=== PATIENT | female | born 1995 | race Caucasian/White ===

== ENCOUNTER 2018-12-19 12:32 | Inpatient (IN) | payer BC ==
[~2018-12-19] VITALS: Ht 160 cm; Wt 64.9 kg
[2018-12-19] VITALS (10 sets, daily range): BP systolic 110–177; BP diastolic 68–118
[2018-12-19 13:36] LABS: Basophils # (auto) 0.1 uL; Basophils % (auto) 0.9 % (0.0-2.0); Eosinophils # (auto) 0.2 uL; Eosinophils % (auto) 2.2 % (0.0-7.0); Hemoglobin 12.8 g/dL (12.2-16.2); Lymphocytes # (auto) 1.6 uL; Lymphocytes % (auto) 17.3 % (10.0-50.0); Mean Corpuscular Hemoglobin 27.2 pg (28.0-32.0); Mean Corpuscular Hgb Conc. 33.7 g/dL (32.0-36.0); Mean Corpuscular Volume 80.6 fL (80.0-100.0); Monocytes # (auto) 0.6 uL; Monocytes % (auto) 6.7 % (0.0-12.0); Neutrophils # (auto) 6.8 uL; Neutrophils % (auto) 72.9 % (37.0-80.0); Nucleated Red Blood Cells % 0.1 %; Platelet Count (auto) 163 10^3/uL (140-450); Red Blood Cells 4.71 10^6/uL (4.0-5.20); Red Cell Distribution Width 13.9 % (11.8-14.3); White Blood Cell 9.3 10^3/uL (4.4-10.8)
[2018-12-19 13:51] LABS: INR < 0.93 (0.9-1.15); Partial Thromboplastin Time 24.7 sec (23.64-32.05)
[2018-12-19 14:00] LABS: Albumin 2.4 g/dL (3.4-5.0); Calcium 8.5 mg/dL (8.5-10.1); Uric Acid 6.2 mg/dL (2.6-6.0)
[2018-12-19 14:03] LABS: BUN/Creatinine Ratio 15.8; Bilirubin, Total 0.2 mg/dL (0.2-1.0); Total Protein 6.2 g/dL (6.4-8.2)
[2018-12-19 14:11] LABS: Urine Bacteria NONE SEEN /hpf (None Seen); Urine Blood Negative /uL (Negative); Urine WBC 3 /hpf (0 - 5)
[2018-12-19 14:56] LABS: Alcohol, Urine < 3.0 mg/dL (0-5); Amphetamine Screen, Urine NEGATIVE (NEGATIVE); Barbiturate Scree,Urine NEGATIVE (NEGATIVE); Benzodiazephine Screen, Urine NEGATIVE (NEGATIVE); Cannabinoid Screen, Urine NEGATIVE (NEGATIVE); Cocaine Screen, Urine NEGATIVE (NEGATIVE); Opiate Scree,Urine NEGATIVE (NEGATIVE); Phencyclidine Screen, Urine NEGATIVE (NEGATIVE)
[2018-12-19] MEDS ORDERED: LABETALOL HCL 200 MG TAB PO ONE (15:30)
[2018-12-19] MEDS ORDERED: LABETALOL HCL 200 MG TAB ONE (15:35)
[2018-12-19] MEDS ORDERED: TETRACAINE 1% INJ 2 ML VIAL IJ ONE (16:01)
[2018-12-19] MEDS ORDERED: fentaNYL CITRATE 100 MCG/2 ML VL ONE (16:01)
[2018-12-19] MEDS ORDERED: MORPHINE SULF(PF) 0.5MG/ML 10ML VIAL ONE (16:01)
[2018-12-19] MEDS ORDERED: SODIUM CHLORIDE LOCK 10 ML ONE (16:02)
[2018-12-19] MEDS ORDERED: ceFAZolin 1GM VL ONE (16:02)
[2018-12-19] MEDS ORDERED: OXYTOCIN 10 UNIT/ML 10ML VIAL ONE (16:02)
[2018-12-19] MEDS ORDERED: ONDANSETRON HCL 4 MG/2 ML VIAL ONE (16:02)
[2018-12-19] MEDS ORDERED: MIDAZOLAM HCL 1MG/1ML-2 ML VIAL ONE (16:02)
[2018-12-19] MEDS ORDERED: EPINEPHrine HCL 1 MG/1 ML AMP ONE (16:03)
[2018-12-19] MEDS ORDERED: BUPIVACAINE/DEXTROSE MPF 0.75% 2 ML AMP IT ONE (16:05)
[2018-12-19] MEDS ORDERED: LACTATED RINGER'S 1,000 ML IV SCH (17:26)
[2018-12-19] MEDS ORDERED: METOCLOPRAMIDE HCL 5MG/ml INJ 2ml VIAL IV PRN (17:30)
[2018-12-19] MEDS ORDERED: HYDROmorphone HCL 2 MG/ML VL IV PRN ×2 (17:30)
[2018-12-19] MEDS ORDERED: ceFAZolin 1GM/50ML 50 ML IV SCH (17:30)
[2018-12-19] MEDS ORDERED: fentaNYL CITRATE 100 MCG/2 ML VL IV PRN (17:30)
[2018-12-19] MEDS ORDERED: MORPHINE SULFATE 4 MG/ML SYR/VIAL IV PRN (17:30)
[2018-12-19] MEDS ORDERED: NALOXONE HCL 0.4 MG/ML VIAL IV PRN (17:30)
[2018-12-19] MEDS ORDERED: ONDANSETRON HCL 4 MG/2 ML VIAL IV PRN (17:30)
[2018-12-19] MEDS ORDERED: diphenhdrAMINE HCL 50 MG/1 ML VL IV PRN (17:30)
--- NOTE | 2018-12-19 18:20 | NUR ---
Post Op for LDRP: Received patient from [facility] SOCIAL SERVICES ANALYST via bed to room . Patient A/A/Ox4, abdominal binder and bilateral SCD's are in place. Fundus firm at umbilicus. IV fluids placed on pump and infusing per order, incisional site dressing clean/dry/intact and Elmore Catheter to gravity draining clear yellow urine. Incentive Spirometer at bedside and instruction on proper use with return demonstration done by patient.
--- NOTE | 2018-12-19 19:00 | NUR ---
CALL PLACED TO DR GREENWOOD REGARDING PT BLOOD PRESSURES. VS REVIEWED WITH . ORDERS RECEIVED FOR LABETALOL 200MG BID, HYDRALIZNE IVP 10MG FOR BP PARAMETERS OF 160/110, AND MAGNESIUM FOR SEIZURE PRECAUTION.
[2018-12-19] MEDS ORDERED: SODIUM CHLORIDE 0.9% 1,000 ML IV SCH (19:12)
[2018-12-19] MEDS ORDERED: MAGNESIUM SULFATE 40MG/ML 1,000 ML IV SCH (19:12)
[2018-12-19] MEDS ORDERED: hydrALAZINE HCL 20 MG/ML VL IV PRN (19:15)
[2018-12-19] MEDS ORDERED: MAGNESIUM SULFATE 100 ML IV ONE (19:15)
[2018-12-19] MEDS ORDERED: hydrALAZINE HCL 20 MG/ML VL ONE (19:41)
--- NOTE | 2018-12-19 21:55 | NUR ---
IV insertion IV access obtained, via clean sterile technique by inserting 20 gauge catheter at L hand. IV secured properly. No trauma to site. Patient tolerated well. IV SL.
[2018-12-19] MEDS ORDERED: ACETAMINOPHEN IV 1000 MG/100ML (10MG/ML) IV ONE (22:00)
[2018-12-19] MEDS: ceFAZolin 1GM/50ML 50 ML IV SCH (23:51)
[2018-12-20] VITALS (12 sets, daily range): BP systolic 112–139; BP diastolic 57–89
--- NOTE | 2018-12-20 01:04 | NUR ---
CALL RECEIVED FROM LAB, CRITICAL MAG LEVEL OF 7.5 NOTED. CALL PLACED TO DUSTY MUNOZ, RESULTS GIVEN OF BLOOD MAG LEVEL, ASSESSMENT ON PT ASYMPTOMATIC. ORDERS RECEIVED TO DECREASE MAG SULFATE TO 1GM/HR. WILL CONTINUE TO MONITOR.
[2018-12-20] MEDS ORDERED: MAGNESIUM SULFATE 40MG/ML 1,000 ML IV SCH (01:30)
[2018-12-20 06:06] LABS: RPR Non Reactive (Non Reactive)
[2018-12-20 06:36] LABS: Basophils # (auto) 0.1 uL; Basophils % (auto) 0.5 % (0.0-2.0); Eosinophils # (auto) 0.2 uL; Eosinophils % (auto) 1.7 % (0.0-7.0); Hematocrit 33.3 % (36.0-46.0); Hemoglobin 11.4 g/dL (12.2-16.2); Lymphocytes # (auto) 1.6 uL; Lymphocytes % (auto) 14.8 % (10.0-50.0); Mean Corpuscular Hemoglobin 27.2 pg (28.0-32.0); Mean Corpuscular Hgb Conc. 34.1 g/dL (32.0-36.0); Mean Corpuscular Volume 79.7 fL (80.0-100.0); Monocytes # (auto) 0.7 uL; Monocytes % (auto) 6.4 % (0.0-12.0); Neutrophils # (auto) 8.2 uL; Neutrophils % (auto) 76.6 % (37.0-80.0); Platelet Count (auto) 144 10^3/uL (140-450); Red Blood Cells 4.18 10^6/uL (4.0-5.20); Red Cell Distribution Width 13.9 % (11.8-14.3); White Blood Cell 10.7 10^3/uL (4.4-10.8)
--- NOTE | 2018-12-20 06:49 | NUR ---
SERVICE LINE LAYER AT BEDSIDE.
--- NOTE | 2018-12-20 08:35 | NUR ---
CALLED DR. SAINI WITH UPDATE ON PATIENT. READ VITALS AND LAB VALUES. NEW ORDERS RECEIVED STOP MAGNESIUM 1 GRAM AND ASSESS BLOOD PRESSURES FOR A FEW HOURS AND CALL WITH BACK WITH RESULTS. IF BLOOD PRESSURE IS HIGH CALL BACK REINALDO. PER DR. SAINI ALSO PUT IN 1ST DAY POST OP ORDERS AND GET PATIENT UP IN 2 HOURS AFTER MAG IS D/C. ORDERS CARRIED OUT.
--- NOTE | 2018-12-20 08:40 | NUR ---
TALKED TO PATIENT ON POC.
[2018-12-20] MEDS ORDERED: BISACODYL 10 MG RECT SUPP PR PRN (08:45)
[2018-12-20] MEDS ORDERED: HYDROcodone-ACET 5/325MG TAB PO PRN (08:45)
[2018-12-20] MEDS ORDERED: PREN-96 PO (09:08)
[2018-12-20] MEDS: ceFAZolin 1GM/50ML 50 ML IV SCH ×2 (09:13→16:35)
[2018-12-20] MEDS: DOCUSATE CALCIUM 240 MG CAP PO SCH ×2 (09:14→10:13)
[2018-12-20] MEDS: DOCUSATE SOD 100 MG CAP PO SCH ×2 (09:14→21:47)
[2018-12-20] MEDS: HYDROcodone-ACET 5/325MG TAB PO PRN ×2 (10:14→16:33)
--- NOTE | 2018-12-20 10:15 | NUR ---
Lynn catheter dc'd Order to discontinue lynn catheter. Lynn dc'd with clean technique following deflation of balloon. Patient tolerated well with no complaints of pain. Continue care.
--- NOTE | 2018-12-20 10:30 | NUR ---
Ambulation: Patient OOB with standby assistance by RN. Patient ambulated to bathroom with steady gait. Patient able to void without difficulty. Pericare teaching provided with returned demonstration by patient. Clean gown provided and bed linen changed. Patient ambulated back to bed with steady gait and no distress noted.
[2018-12-20] MEDS ORDERED: hydrALAZINE HCL 20 MG/ML VL IV ONE (12:30)
[2018-12-20] MEDS: LABETALOL HCL 200 MG TAB PO SCH ×2 (12:42→21:48)
[2018-12-20] MEDS: SIMETHICONE 80 MG CHEWABLE TABLET PO SCH ×3 (12:52→22:00)
[2018-12-20] MEDS: IBUPROFEN 800 MG TAB PO PRN ×2 (12:54→21:09)
[2018-12-21 03:00] VITALS: BP 130/88
[2018-12-21] MEDS: HYDROcodone-ACET 5/325MG TAB PO PRN ×4 (03:12→22:04)
--- NOTE | 2018-12-21 03:19 | NUR ---
Pain assessment: Patient called c/o pain at her incision area. Pain scale 7/10. Bellerose 5/325 mg 2 tab Po given . Addendum: 12/22/18 at 0433 by Itzel Gomez RN Date and Time : 12/22/18 at 0319 Pain assessment: Patient called c/o pain at her incision area. Pain scale 7/10. Bellerose 5/325 mg 2 tab Po given .
[2018-12-21] MEDS: SIMETHICONE 80 MG CHEWABLE TABLET PO SCH ×4 (05:34→22:03)
[2018-12-21] MEDS: IBUPROFEN 800 MG TAB PO PRN ×2 (05:35→14:10)
[2018-12-21 07:00] VITALS: BP 139/99
--- NOTE | 2018-12-21 07:00 | NUR ---
Lower abdominal incision clean, dry and well approximated with abhijit present and intact. Addendum: 12/21/18 at 1157 by Sveta Duran RN Amended: Links added.
[2018-12-21] MEDS: DOCUSATE CALCIUM 240 MG CAP PO SCH (10:07)
[2018-12-21] MEDS: DOCUSATE SOD 100 MG CAP PO SCH ×2 (10:07→22:03)
[2018-12-21] MEDS: LABETALOL HCL 200 MG TAB PO SCH ×2 (10:08→22:06)
[2018-12-21 11:00] VITALS: BP 145/96
[2018-12-21 15:16] VITALS: BP 144/87
--- NOTE | 2018-12-21 15:28 | NUR ---
assessment Per consult surrogate delivery. Per Vinay GRAY received surrogate paperwork after delivery. Per Vinay baby has already been given to maternal mother. Social service was not paged or involved with transfer of baby to mother. Surrogate transfer of baby handled by LDRP. BABY BOY @ 1317 : 11[birth year] BABY ID: [id number]. Addendum: 12/21/18 at 1531 by Karon Espitia Amended: Links added.
[2018-12-21 19:00] VITALS: BP 155/93
[2018-12-21] MEDS ORDERED: NIFEdipine ER 30 MG TAB PO ONE (20:15)
[2018-12-21 20:58] LABS: Eosinophils # (auto) 0.3 uL; Hemoglobin 11.7 g/dL (12.2-16.2); Neutrophils # (auto) 6.3 uL; Nucleated Red Blood Cells % 0.1 %
[2018-12-21 20:59] LABS: Basophils # (auto) 0 uL; Basophils % (auto) 0.5 % (0.0-2.0); Eosinophils % (auto) 3.2 % (0.0-7.0); Hematocrit 35.2 % (36.0-46.0); Lymphocytes # (auto) 2.1 uL; Lymphocytes % (auto) 21.3 % (10.0-50.0); Mean Corpuscular Hemoglobin 27.3 pg (28.0-32.0); Mean Corpuscular Hgb Conc. 33.4 g/dL (32.0-36.0); Mean Corpuscular Volume 81.9 fL (80.0-100.0); Platelet Count (auto) 197 10^3/uL (140-450); Red Cell Distribution Width 14.2 % (11.8-14.3); White Blood Cell 9.7 10^3/uL (4.4-10.8)
[2018-12-21 21:14] LABS: Albumin 2.2 g/dL (3.4-5.0); Calcium 8.4 mg/dL (8.5-10.1); Potassium 4.2 mmol/L (3.5-5.1); Uric Acid 6.4 mg/dL (2.6-6.0)
[2018-12-21 21:16] LABS: INR < 0.93 (0.9-1.15); Partial Thromboplastin Time 26.6 sec (23.64-32.05)
[2018-12-21 21:17] LABS: BUN/Creatinine Ratio 16.7; Bilirubin, Total 0.2 mg/dL (0.2-1.0)
--- NOTE | 2018-12-21 22:00 | NUR ---
Called/paged Dr. Barroso called re: patient's BP 150/101,Hr 88. Patient having blurry vision and headache.Spoke with Dr Barroso with new orders received. PIH panel, Procardia XL 30 mg PO daily. Continue care.
--- NOTE | 2018-12-21 22:05 | NUR ---
Suppository: Dulcolax supp administered AL as requested.
[2018-12-21 23:00] VITALS: BP 112/75
--- NOTE | 2018-12-21 23:00 | NUR ---
Ambulation: Patient OOB and ambulated to bathroom with steady gait. Patient able to have BM . Patient ambulated back to bed with steady gait and no distress noted.
[2018-12-22 03:00] VITALS: BP 110/71
[2018-12-22] MEDS: HYDROcodone-ACET 5/325MG TAB PO PRN ×2 (03:19→16:33)
[2018-12-22] MEDS: SIMETHICONE 80 MG CHEWABLE TABLET PO SCH (06:31)
[2018-12-22 07:00] VITALS: BP 116/76
--- NOTE | 2018-12-22 07:00 | NUR ---
LOWER ABDOMINAL INCISION CLEAN, DRY AND WELL APPROXIMATED WITH MEGAN PRESENT AND INTACT. Addendum: 12/22/18 at 0858 by Sveta Duran RN Amended: Links added.
[2018-12-22] MEDS: IBUPROFEN 800 MG TAB PO PRN (09:46)
[2018-12-22] MEDS: DOCUSATE CALCIUM 240 MG CAP PO SCH (09:48)
[2018-12-22] MEDS: LABETALOL HCL 200 MG TAB PO SCH (09:49)
[2018-12-22] MEDS: DOCUSATE SOD 100 MG CAP PO SCH (09:50)
[2018-12-22 11:00] VITALS: BP 127/80
[2018-12-22 15:30] VITALS: BP 118/78
--- NOTE | 2018-12-22 16:15 | NUR ---
Abhijit removed Lower abdominal incision clean dry and well approximated with 13 abhijit present and [id number] abhijit removed from lower abdominal incision using staple removal kit. Steristrips applied and reinforced to incision site. Site is clean dry and intact.
--- NOTE | 2018-12-22 16:45 | NUR ---
Discharge: Discharge instructions given as ordered. Pt encouraged to follow up with COMPUTED TOMOGRAPHY SCANNER OPERATOR as instructed. All questions and concerns addressed. Patient verbalized understanding. Medication reconciliation completed and copy given to patient. All required/requested vaccines given and copies of vaccinations given to patient. Patient encouraged to prepare to depart unit.
--- NOTE | 2018-12-22 16:55 | NUR ---
IV removal IV DC'd with clean sterile technique, catheter fully intact. Pressure dressing applied to site. Patient tolerated well. NOTE:
[2018-12-22 17:00] VITALS: BP 118/72
--- NOTE | 2018-12-22 17:00 | NUR ---
Discharge: Patient taken to vehicle via wheelchair with all personal belongings, accompanied by staff and family member. No distress noted at time of departure, no adverse changes in status since initial assessment.
[2018-12-22] MEDS ORDERED: NIFEdipine ER 30 MG TAB PO SCH (22:00)
--- NOTE | 2018-12-24 09:02 | NUR ---
o/c note did not receive a call on this pt
== END 2018-12-22 17:00 | disposition home or self-care (01) | DRG 788 ==
LOC: LDRP 12:32 → OBSVTOIN 14:05 → LDRP 14:06
PROVIDERS: ADMIT Specialist; ATTEND Specialist
PROC: 10D00Z1 Extraction of Products of Conception, Low, Open Approach (ICD-10-PCS; principal; 2018-12-19 16:15)
DX: O34.211 Maternal care for low transverse scar from previous cesarean delivery (principal); Z37.0 Single live birth; Z3A.38 38 weeks gestation of pregnancy; O14.94 Unspecified pre-eclampsia, complicating childbirth
CPT/HCPCS: 36415; 51702; 59025; 80053; 80307; 81001; 81002; 83735; 84112; 84550; 85025; 85610; 85730; 86592; 86850; 86900; 86901; 94760; 94762; 96361; 96365; 96366; G0378; J0131; J0171; J0690; J2250; J2405; J2590

== ENCOUNTER 2019-11-29 14:07 | Observation (INO) | payer MEDICAID ==
[~2019-11-29 14:07] MED LIST: PREN-96 PO
[2019-11-29] MEDS ORDERED: SERT-274 PO (14:30)
== END 2019-11-29 14:55 | disposition home or self-care (01) ==
LOC: LDRP 14:07
PROVIDERS: ADMIT Obstetrics & Gynecology; ATTEND Obstetrics & Gynecology
DX: O26.852 Spotting complicating pregnancy, second trimester (principal); O26.892 Other specified pregnancy related conditions, second trimester; N89.8 Other specified noninflammatory disorders of vagina; Z3A.27 27 weeks gestation of pregnancy
CPT/HCPCS: 59025; 81002; G0378

== ENCOUNTER 2020-01-06 20:42 | Observation (INO) | payer MEDICAID ==
[~2020-01-06] VITALS: Ht 160 cm; Wt 55.3 kg
[~2020-01-06 20:42] MED LIST changes: +SERT-274 PO
[2020-01-06] MEDS ORDERED: TERBUTALINE SULFATE 1 MG/ML 1ML VIAL SC SCH (22:15)
== END 2020-01-06 23:51 | disposition home or self-care (01) ==
LOC: UNDOADMOB 20:42 → LDRP 20:42 → UNDODISOB 23:51
PROVIDERS: ADMIT Specialist; ATTEND Specialist
DX: O60.03 Preterm labor without delivery, third trimester (principal); Z3A.33 33 weeks gestation of pregnancy
CPT/HCPCS: 59025; 76815; 81002; 96372; G0378; J3105

== ENCOUNTER → 2020-02-22 | Outpatient (CLI) | payer MEDICAID ==
[~2020-02-22] MED LIST changes: +NIF10C GT
== END | disposition home or self-care (01) ==
LOC: UNDOADMOB 08:33 → LAB 08:33 → LDRP 08:33 → EDSTATUS 08:42 → UNDODISOB 09:30
PROVIDERS: ATTEND Specialist
DX: Z20.828 Contact with and (suspected) exposure to other viral communicable diseases (principal)
CPT/HCPCS: G0378

== ENCOUNTER 2020-02-24 04:16 | Inpatient (IN) | payer MEDICAID ==
[2020-02-24] VITALS (7 sets, daily range): BP systolic 108–118; BP diastolic 56–76
[~2020-02-24] VITALS: Ht 160 cm; Wt 57.2 kg
--- NOTE | 2020-02-24 04:15 | NUR ---
REPORT RECEIVED FROM [facility]. RESUME CARE
[~2020-02-24 04:16] MED LIST changes: -NIF10C GT
[2020-02-24] MEDS ORDERED: LACTATED RINGER'S 1,000 ML IV ONE (04:45)
[2020-02-24] MEDS ORDERED: ceFAZolin 1GM/50ML 50 ML IV ONE (04:45)
[2020-02-24 05:34] LABS: Basophils # (auto) 0 10 ^3/uL (0-0.2); Basophils % (auto) 0.5 % (0.0-2.0); Eosinophils # (auto) 0.2 10 ^3/uL (0-0.8); Eosinophils % (auto) 2.1 % (0.0-7.0); Hematocrit 31.1 % (36.0-46.0); Hemoglobin 10.1 g/dL (12.2-16.2); Lymphocytes # (auto) 1.4 10 ^3/uL (0.4-5.4); Lymphocytes % (auto) 17.4 % (10.0-50.0); Mean Corpuscular Hemoglobin 23.6 pg (28.0-32.0); Mean Corpuscular Hgb Conc. 32.4 g/dL (32.0-36.0); Mean Corpuscular Volume 72.6 fL (80.0-100.0); Monocytes # (auto) 0.5 10 ^3/uL (0-1.3); Monocytes % (auto) 5.7 % (0.0-12.0); Neutrophils # (auto) 5.8 10 ^3/uL (1.6-8.6); Neutrophils % (auto) 74.3 % (37.0-80.0); Nucleated Red Blood Cells % 0.1 %; Platelet Count (auto) 188 10^3/uL (140-450); Red Blood Cells 4.28 10^6/uL (4.0-5.20); Red Cell Distribution Width 16.5 % (11.8-14.3); White Blood Cell 7.9 10^3/uL (4.4-10.8)
[2020-02-24 05:47] LABS: INR 0.97 (0.9-1.15); Partial Thromboplastin Time 23.9 sec (23.0-31.2)
[2020-02-24 05:52] LABS: Albumin 2.2 g/dL (3.4-5.0); Calcium 8.6 mg/dL (8.5-10.1); Potassium 4.1 mmol/L (3.5-5.1)
[2020-02-24 05:56] LABS: BUN/Creatinine Ratio 17.1; Bilirubin, Total 0.2 mg/dL (0.2-1.0)
[2020-02-24] MEDS ORDERED: NIF10C GT (06:21)
[2020-02-24 07:07] LABS: Urine Bacteria FEW /hpf (None Seen); Urine Blood Negative /uL (Negative); Urine Mucus FEW (None Seen); Urine Specific Gravity 1.008 (1.001-1.035); Urine WBC 1 /hpf (0 - 5)
[2020-02-24 07:17] LABS: Alcohol, Urine < 3.0 mg/dL (0-10); Amphetamine Screen, Urine NEGATIVE (NEGATIVE); Barbiturate Scree,Urine NEGATIVE (NEGATIVE); Benzodiazephine Screen, Urine NEGATIVE (NEGATIVE); Cannabinoid Screen, Urine NEGATIVE (NEGATIVE); Cocaine Screen, Urine NEGATIVE (NEGATIVE); Opiate Scree,Urine NEGATIVE (NEGATIVE); Phencyclidine Screen, Urine NEGATIVE (NEGATIVE)
[2020-02-24] MEDS: LACTATED RINGER'S 1,000 ML IV SCH ×4 (07:21→17:30)
[2020-02-24] MEDS ORDERED: TETRACAINE 1% INJ 2 ML VIAL IJ ONE (07:48)
[2020-02-24] MEDS ORDERED: PHENYLEPHRINE HCL 10 MG/ML VL ONE (08:01)
[2020-02-24] MEDS ORDERED: ePHEDrine SULFATE 50 MG/ML AMP ONE (08:01)
[2020-02-24] MEDS ORDERED: MORPHINE SULF(PF) 0.5MG/ML 10ML VIAL ONE (08:01)
[2020-02-24] MEDS ORDERED: oxyTOCIN 10 UNIT/ML 10ML VIAL ONE (08:03)
[2020-02-24] MEDS ORDERED: METOCLOPRAMIDE HCL 5MG/ml INJ 2ml VIAL ONE (09:04)
[2020-02-24] MEDS ORDERED: ONDANSETRON HCL 4 MG/2 ML VIAL ONE (09:06)
[2020-02-24] MEDS ORDERED: MIDAZOLAM HCL 1MG/1ML-2 ML VIAL ONE (09:10)
[2020-02-24] MEDS ORDERED: ONDANSETRON HCL 4 MG/2 ML VIAL IV PRN ×3 (09:30→09:45)
[2020-02-24] MEDS ORDERED: HYDROmorphone HCL 2 MG/ML VL IV PRN ×2 (09:30→09:45)
[2020-02-24] MEDS ORDERED: KETOROLAC TROMETH 30 MG/ML 1ML VIAL IV PRN (09:30)
[2020-02-24] MEDS ORDERED: ceFAZolin 1GM/50ML 50 ML IV SCH (09:30)
[2020-02-24] MEDS ORDERED: GUM (CHEWING) 1 GUM CHEW CHEW ONE (09:30)
[2020-02-24] MEDS ORDERED: diphenhdrAMINE HCL 50 MG/1 ML VL IV PRN (09:45)
[2020-02-24] MEDS ORDERED: NALOXONE HCL 0.4 MG/ML VIAL IV PRN ×2 (09:45)
--- NOTE | 2020-02-24 10:00 | NUR ---
Post Op for LDRP: Received patient from PACU via bed B to room 108. Patient A/A/Ox4, abdominal binder and bilateral SCD's are in place, IV fluids placed on pump and infusing per order, incisional site dressing intact .Elmore Catheter to gravity draining clear pale yellow urine. Incentive Spirometer at bedside and instruction on proper use with return demonstration done by patient.
--- NOTE | 2020-02-24 11:20 | NUR ---
Social Service Tracy at bedside to talk to mother and father of baby .
--- NOTE | 2020-02-24 16:00 | NUR ---
Report given to Chinedu Colón RN
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
[2020-02-24] MEDS: KETOROLAC TROMETH 30 MG/ML 1ML VIAL IV PRN ×2 (16:36→22:13)
[2020-02-24] MEDS: ceFAZolin 1GM/50ML 50 ML IV SCH (16:36)
[2020-02-24] MEDS: SERTRALINE HCL 50 MG TAB PO SCH (19:44)
--- NOTE | 2020-02-24 23:25 | NUR ---
Ambulation: Adi-care performed and adi-pad and underwear placed. Gown changed. Patient OOB with standby assistance by RN. Patient ambulated ,gait steady, down hallway pushing open crib to LDR 1 and back to PP room 8. Bed linen changed. Patient ambulated back to bed with steady gait and no distress noted.
[2020-02-25] VITALS (7 sets, daily range): BP systolic 112–123; BP diastolic 62–89
[2020-02-25] MEDS: ceFAZolin 1GM/50ML 50 ML IV SCH ×2 (00:26→08:00)
[2020-02-25] MEDS: LACTATED RINGER'S 1,000 ML IV SCH ×2 (01:30→09:30)
[2020-02-25] MEDS: KETOROLAC TROMETH 30 MG/ML 1ML VIAL IV PRN ×2 (04:49→11:35)
--- NOTE | 2020-02-25 04:55 | NUR ---
Lynn catheter dc'd Order to discontinue lynn catheter. Lynn dc'd with clean technique following deflation of balloon. Patient tolerated well with no complaints of pain. Continue care.
[2020-02-25 06:06] LABS: RPR Non Reactive (Non Reactive)
[2020-02-25 08:20] LABS: Basophils # (auto) 0 10 ^3/uL (0-0.2); Basophils % (auto) 0.4 % (0.0-2.0); Eosinophils # (auto) 0.1 10 ^3/uL (0-0.8); Lymphocytes # (auto) 1.1 10 ^3/uL (0.4-5.4); Monocytes # (auto) 0.9 10 ^3/uL (0-1.3)
[2020-02-25 08:23] LABS: Eosinophils % (auto) 1.3 % (0.0-7.0); Hematocrit 28.6 % (36.0-46.0); Hemoglobin 9.3 g/dL (12.2-16.2); Lymphocytes % (auto) 11.3 % (10.0-50.0); Mean Corpuscular Hemoglobin 23.7 pg (28.0-32.0); Mean Corpuscular Hgb Conc. 32.5 g/dL (32.0-36.0); Mean Corpuscular Volume 72.8 fL (80.0-100.0); Monocytes % (auto) 9.6 % (0.0-12.0); Neutrophils # (auto) 7.3 10 ^3/uL (1.6-8.6); Neutrophils % (auto) 77.4 % (37.0-80.0); Platelet Count (auto) 169 10^3/uL (140-450); Red Blood Cells 3.92 10^6/uL (4.0-5.20); Red Cell Distribution Width 16.6 % (11.8-14.3); White Blood Cell 9.4 10^3/uL (4.4-10.8)
--- NOTE | 2020-02-25 13:10 | NUR ---
MARTA AND CHRISTOPHER FROM [employer] CALLED THE UNIT AND INFORMED THAT IRASEMA SMITH FROM [facility] IS WORKING ON A WARRANT TO PUT A HOLD ON THE BABY. THIS RN TOLD TO EXPECT A FAXED FROM THE COURT HOUSE OF THE HOLD.
--- NOTE | 2020-02-25 13:27 | NUR ---
Receive a call from Mouna Portillo CPS garnett room worker, baby Loraine Pratt is not to be release to Mother Lashay Culver, Father Thierno Pratt and Grandmother Sharmila Zarate. Per Mouna Portillo CPS Architectural Sales Consultant, she is processing court documents for warrant for Hospital hold letter to not release Loraine Pratt. Per Mouna Portillo, after warrant is issued from CPS, the Trend Investigator will serve warrant to parents and provide a copy to the Claudia GARCIA. Will follow up with bedside nurse Claudia to inform her that CPS and Trend Investigator will contact her about baby Loraine Pratt. Mouna Portillo [phone].
--- NOTE | 2020-02-25 13:45 | NUR ---
Received call from Tracy from [employer] , baby Loraine Pratt is not to be released to mother Lashay Culver, Father Thierno Pratt, or Grandmother Sharmila Zarate. Per Tracy, Father not to be allowed in room with , court documents for warrant is being processed not to release , warrant will be served by .
--- NOTE | 2020-02-25 16:43 | NUR ---
[facility] department and Social workers arrived to unit.
--- NOTE | 2020-02-25 16:50 | NUR ---
and Social workers at the bedside to serve warrant to patient for removal of from mother's care.
[2020-02-25] MEDS ORDERED: BISACODYL 10 MG RECT SUPP PR PRN (17:00)
[2020-02-25] MEDS ORDERED: HYDROcodone-ACET 5/325MG TAB PO PRN (17:00)
--- NOTE | 2020-02-25 17:00 | NUR ---
[facility] STEPHANIE MELENDREZ, AND SOFIA BETTENCOURT ALONG WITH SHERIFF MARKUS JIMENEZ, AND Chinedu JURADO AT THE BEDSIDE WITH THIS RN TO REMOVE INFANT FROM THE MOTHER AND PLACE ON CSF. INFANT TAKEN TO THE NURSERY VIA OPEN CRIB IN STABLE CONDITION.
--- NOTE | 2020-02-25 17:03 | NUR ---
AMA Note Patient states they want to leave the hospital Against Medical Advice (AMA). Patient encouraged to stay for further treatment/stabilization. Patient advised of the risks and benefits of leaving AMA. Patient verbalized understanding.
--- NOTE | 2020-02-25 17:15 | NUR ---
MD Dr. Nielsen notified patient wants to leave the hospital Against Medical Advice (AMA). Dr. Nielsen advises patient to call and make appt with Dr. Barroso Monday03/02/2020 to have abhijit removed.
[2020-02-25] MEDS: SIMETHICONE 80 MG CHEWABLE TABLET PO SCH ×2 (19:00→21:41)
[2020-02-25] MEDS: HYDROcodone-ACET 5/325MG TAB PO PRN (19:00)
[2020-02-25] MEDS: SERTRALINE HCL 50 MG TAB PO SCH (20:04)
[2020-02-25] MEDS: DOCUSATE SOD 100 MG CAP PO SCH (21:41)
[2020-02-26 02:41] VITALS: BP 117/78
[2020-02-26] MEDS: HYDROcodone-ACET 5/325MG TAB PO PRN (02:42)
[2020-02-26] MEDS: SIMETHICONE 80 MG CHEWABLE TABLET PO SCH ×4 (05:36→22:09)
[2020-02-26 06:30] VITALS: BP 118/61
[2020-02-26] MEDS ORDERED: DOCUSATE CALCIUM 240 MG CAP PO SCH (10:00)
[2020-02-26] MEDS: DOCUSATE SOD 100 MG CAP PO SCH ×2 (10:16→22:09)
[2020-02-26] MEDS: IBUPROFEN 800 MG TAB PO PRN ×2 (10:17→18:11)
[2020-02-26 11:00] VITALS: BP 121/77
[2020-02-26 15:05] VITALS: BP 114/74
--- NOTE | 2020-02-26 18:45 | NUR ---
IV removal DC'd 20G IV in LQW with sterile technique, catheter fully intact. Pressure dressing applied to site. Patient tolerated procedure well. Discharged with aftercare instructions per MD. NOTE: Pt complains of pain at IV site.
[2020-02-26 18:47] VITALS: BP 127/88
[2020-02-26] MEDS: SERTRALINE HCL 50 MG TAB PO SCH (20:29)
[2020-02-27] MEDS ORDERED: TETANUS-DIPTH-ACEL PERTUSSIS 0.5ML SYR Tdap IM ONE (02:45)
[2020-02-27] MEDS ORDERED: INFLUENZA QUAD 2020-2021 0.5 ML SYRG IM ONE (02:45)
[2020-02-27 03:00] VITALS: BP 118/68
[2020-02-27] MEDS: IBUPROFEN 800 MG TAB PO PRN (03:16)
[2020-02-27] MEDS: SIMETHICONE 80 MG CHEWABLE TABLET PO SCH (06:15)
[2020-02-27 07:00] VITALS: BP 121/75
--- NOTE | 2020-02-27 09:20 | NUR ---
C/S Staple Removal DC Note: Orders received to remove abhijit. Abhijit removed using sterile technique. Lower abdominal incision approximated, no drainage/redness/inflammation visualized at time of removal. Steri-strips applied. Education provided on incisional care. Patient verbalized understanding and willingness to comply to instructions/teaching provided.
--- NOTE | 2020-02-27 09:30 | NUR ---
Discharge: Discharge instructions given as ordered. Pt encouraged to follow up with HANDLE MACHINE OPERATOR as instructed. All questions and concerns addressed. Patient verbalized understanding. Medication reconciliation completed and copy given to patient. All required/requested vaccines given and copies of vaccinations given to patient. Patient encouraged to prepare to depart unit.
[2020-02-27] MEDS: HYDROcodone-ACET 5/325MG TAB PO PRN (09:32)
[2020-02-27 10:14] VITALS: BP 124/74
--- NOTE | 2020-02-27 10:14 | NUR ---
Discharge: Patient taken to vehicle with all personal belongings. No distress noted at time of departure, no adverse changes in status since initial assessment.
== END 2020-02-27 14:50 | disposition home or self-care (01) | DRG 540 ==
LOC: LDRP 04:16
PROVIDERS: ADMIT Specialist; ATTEND Specialist
PROC: 0UL70CZ Occlusion of Bilateral Fallopian Tubes with Extraluminal Device, Open Approach (ICD-10-PCS; 2020-02-24)
PROC: 10D00Z1 Extraction of Products of Conception, Low, Open Approach (ICD-10-PCS; principal; 2020-02-24 08:19)
DX: O69.81X0 Labor and delivery complicated by cord around neck, without compression, not applicable or unspecified (principal); O34.211 Maternal care for low transverse scar from previous cesarean delivery; Z30.2 Encounter for sterilization; Z37.0 Single live birth; Z3A.39 39 weeks gestation of pregnancy
CPT/HCPCS: 36415; 80053; 80307; 81001; 85025; 85610; 85730; 86592; 86850; 86900; 86901; 90715; 94762; 96361; 96372; 96374; 96375; G0378; J0690; J1885; J2250; J2405; J2590